=== PATIENT | male | born 2000 ===

== ENCOUNTER 2022-03-13 07:59 | Emergency (ER) | payer MEDICAID ==
[~2022-03-13] VITALS: Ht 180.3 cm; Wt 66.0 kg
[2022-03-13 08:01] VITALS: BP 133/89
== END 2022-03-13 09:16 | disposition home or self-care (01) ==
LOC: ER 08:00
DX: J06.9 Acute upper respiratory infection, unspecified (principal); H57.89 Other specified disorders of eye and adnexa
CPT/HCPCS: 99282